=== PATIENT | female | born 1990 | race Caucasian/White ===

== ENCOUNTER 2019-10-30 16:31 | Emergency (ER) | payer OTHER ==
--- NOTE | 2019-10-30 16:37 | ED ---
General Adult HPI - General Stated complaint: Cough, wants covid test Time Seen by Provider: 10/30/19 16:35 - History of Present Illness Initial comments: Patient is a 29-year-old female presenting to emergency Department with a chief complaint of a cough. Patient states she came neck recently. For ago with the number of Covid cases have drastically increased. Patient [place] and potentially has been exposed to a Covid patient. Also reports over the last few days she has developed a nonproductive cough. She denies any shortness of breath or fevers. Denies any loss of taste or smell. Denies any nausea vomiting diarrhea. Patient is a smoker. Denies history of any respiratory conditions. - Related Data Allergies Allergy/AdvReac Type Severity Reaction Status Date / Time cephalexin [From Keflex] Allergy Unknown Verified 10/30/19 16:42 codeine Allergy Unknown Verified 10/30/19 16:42 Penicillins Allergy Unknown Verified 10/30/19 16:42 tramadol Allergy Unknown Verified 10/30/19 16:42 Review of Systems ROS Statement: Those systems with pertinent positive or pertinent negative responses have been documented in the HPI. ROS Other: All systems not noted in ROS Statement are negative. General Exam Limitations: no limitations General appearance: alert, in no apparent distress, obese Head exam: Present: atraumatic, normocephalic, normal inspection Eye exam: Present: normal appearance, PERRL, EOMI Pupils: Present: normal accommodation ENT exam: Present: normal exam, normal oropharynx, mucous membranes moist Neck exam: Present: normal inspection, full ROM Respiratory exam: Present: normal lung sounds bilaterally. Absent: respiratory distress, wheezes Cardiovascular Exam: Present: regular rate, normal rhythm, normal heart sounds Extremities exam: Present: normal inspection, full ROM. Absent: tenderness Back exam: Present: normal inspection, full ROM. Absent: tenderness Neurological exam: Present: alert, oriented X3, normal gait Psychiatric exam: Present: normal affect, normal mood Skin exam: Present: warm, dry, intact, normal color Course Vital Signs 10/30/19 16:37 Temperature 98.3 F Pulse Rate 92 Respiratory 18 Rate Blood Pressure 116/75 O2 Sat by Pulse 97 Oximetry Medical Decision Making - Medical Decision Making Patient is a 29-year-old female presenting to the emergency department with a chief complaint of a cough. Patient is also requesting Covid testing. Physical examination is unremarkable. Patient is not in any respiratory distress. Vitals are stable. X-ray of the chest is unremarkable. Cor with testing pending. Patient will be notified with the results as soon as they become available.I counseled the patient for smoking cessation for greater than 3 minutes. Patient advised to self isolate until the results are given. Return parameters thoroughly discussed the patient was understanding and agreeable. Case discussed with physician. Disposition Clinical Impression: Cough Disposition: HOME SELF-CARE Condition: Stable Additional Instructions: You'll be contacted with the Covid results. Return to emergency department if symptoms worsen. Follow with primary care. Self isolate until you receive Covid testing results. Is patient prescribed a controlled substance at d/c from ED?: No Referrals: Kenneth Vargas MD [Primary Care Provider] - 1-2 days Time of Disposition: 17:32
[2019-10-30 16:41] VITALS: BP 116/75; PULSE 92; RESP 18; TEMP 98.3
--- NOTE | 2019-10-30 17:21 | XR ---
EXAMINATION TYPE: XR chest 2V DATE OF EXAM: 10/30/2019 COMPARISON: NONE HISTORY: Chest pain TECHNIQUE: Frontal and lateral views of the chest are obtained. FINDINGS: There is no focal air space opacity. No evidence for pneumothorax. No pleural effusion. The cardiac silhouette size is within normal limits. The osseous structures are grossly intact. IMPRESSION: 1. No acute cardiopulmonary process.
== END 2019-10-30 18:01 | disposition home or self-care (01) ==
LOC: EC 16:31
DX: R05 Cough (principal); F17.200 Nicotine dependence, unspecified, uncomplicated; Z88.0 Allergy status to penicillin; Z88.1 Allergy status to other antibiotic agents; Z88.5 Allergy status to narcotic agent; Z88.6 Allergy status to analgesic agent; Z20.828 Contact with and (suspected) exposure to other viral communicable diseases
CPT/HCPCS: 99283; 71046; U0003

== ENCOUNTER 2020-10-02 19:01 | Emergency (ER) | payer OTHER ==
[2020-10-02 20:57] VITALS: BP 105/48; PULSE 73; RESP 20; TEMP 98.2
--- NOTE | 2020-10-02 21:25 | XR ---
EXAMINATION TYPE: XR knee complete RT DATE OF EXAM: 10/02/2020 COMPARISON: NONE HISTORY: Knee pain TECHNIQUE: 3 views FINDINGS: There is previous knee reconstructive surgery. I see no fracture nor dislocation. There is no sign of joint effusion. Joint spaces are fairly normal. IMPRESSION: Previous surgery. No fracture. No significant arthritic disease.
[2020-10-02] MEDS ORDERED: KETOROLAC 15 MG/ML 1 ML VIAL IM STA (21:39)
--- NOTE | 2020-10-03 02:36 | ED ---
Lower Extremity Injury HPI - General Chief Complaint: Extremity Injury, Lower Stated Complaint: rt knee pain Time Seen by Provider: 10/02/20 21:11 Source: patient Mode of arrival: ambulatory Limitations: no limitations - History of Present Illness Initial Comments: 30-year-old female patient presents to the emergency department today for evaluation of right knee pain and swelling. Patient states she's had problems with the knee for quite some time. Has had previous surgery for ACL reconstruction. States she is scheduled to undergo surgery again within the next couple of weeks. Patient states she came in today because the pain seemed worse. Unable to get the swelling to go down. His any numbness or tingling to the right foot. Denies any new injury. Denies fever or chills. Denies any redness over the knee. - Related Data Allergies Allergy/AdvReac Type Severity Reaction Status Date / Time cephalexin [From Keflex] Allergy Unknown Verified 10/02/20 20:57 codeine Allergy Unknown Verified 10/02/20 20:57 Penicillins Allergy Unknown Verified 10/02/20 20:57 tramadol Allergy Unknown Verified 10/02/20 20:57 Review of Systems ROS Statement: Those systems with pertinent positive or pertinent negative responses have been documented in the HPI. ROS Other: All systems not noted in ROS Statement are negative. Past Medical History Past Medical History: No Reported History History of Any Multi-Drug Resistant Organisms: None Reported Past Surgical History: Cholecystectomy, Orthopedic Surgery Additional Past Surgical History / Comment(s): rt knee Past Psychological History: Bipolar, Depression Past Alcohol Use History: Occasional Past Drug Use History: None Reported General Exam Limitations: no limitations General appearance: alert, in no apparent distress Respiratory exam: Present: normal lung sounds bilaterally. Absent: respiratory distress, wheezes, rales, rhonchi, stridor Cardiovascular Exam: Present: regular rate, normal rhythm, normal heart sounds. Absent: systolic murmur, diastolic murmur, rubs, gallop, clicks Extremities exam: Present: normal inspection, full ROM, normal capillary refill, other (Skin to the right leg is pink, warm, dry. Cap refill less than 3 seconds. Pedal and posttibial pulses 2+. Patient has full flexion and full extension of the knee. No laxity or pain with valgus or varus maneuvers. No significant swelling.). Absent: tenderness, pedal edema, joint swelling, calf tenderness Neurological exam: Present: alert, oriented X3, CN II-XII intact Psychiatric exam: Present: normal affect, normal mood Skin exam: Present: warm, dry, intact, normal color. Absent: rash Course Vital Signs 10/02/20 20:54 Temperature 98.2 F Pulse Rate 73 Respiratory 20 Rate Blood Pressure 105/48 O2 Sat by Pulse 99 Oximetry Medical Decision Making - Medical Decision Making 30-year-old female patient presents to the emergency department today for evalua tion of right knee pain. Physical examination was unremarkable. She had full range of motion. Neurovascular status was intact. She does have an appointment coming up with orthopedics in a surgery scheduled. She is instructed to follow- up with her doctor for pain medication due to multiple ALLERGIES. Return parameters were discussed in detail. She verbalizes understanding and agrees with this plan. My attending is Dr. Mendoza. - Radiology Data Radiology results: report reviewed, image reviewed 3 views of the right knee showed previous surgery no fracture. No significant arthritic disease. Disposition Clinical Impression: Chronic pain of right knee Disposition: HOME SELF-CARE Condition: Good Instructions (If sedation given, give patient instructions): Knee Pain (ED) Is patient prescribed a controlled substance at d/c from ED?: No Referrals: Kenneth Vargas MD [Primary Care Provider] - 1-2 days Time of Disposition: 21:39
== END 2020-10-02 21:50 | disposition home or self-care (01) ==
LOC: EC 19:01
DX: G89.29 Other chronic pain (principal); M25.561 Pain in right knee; Z88.0 Allergy status to penicillin; Z88.1 Allergy status to other antibiotic agents; Z88.5 Allergy status to narcotic agent; Z88.8 Allergy status to other drugs, medicaments and biological substances
CPT/HCPCS: 73562; 99283; 96372; J1885

== ENCOUNTER 2020-11-29 | Emergency (ER) | payer OTHER ==
--- NOTE | 2020-11-29 01:25 | ED ---
General Adult HPI - General Chief complaint: Shortness of Breath Stated complaint: SOB Time Seen by Provider: 11/29/20 00:13 Source: patient, RN notes reviewed Mode of arrival: ambulatory Limitations: no limitations - History of Present Illness Initial comments: Patient is a 30-year-old female that presents to the emergency department for a one-day history of upper respiratory tract symptoms. She notes that she is in a cough with phlegm production no mucus. She denied any fevers aches or pains. She was otherwise a well-appearing 30-year-old female in no apparent distress while sitting up in bed during the exam interview. She denied any chest pain headache nausea vomiting diarrhea constipation fever fatigue chills. - Related Data Allergies Allergy/AdvReac Type Severity Reaction Status Date / Time cephalexin [From Keflex] Allergy Unknown Verified 11/29/20 00:11 codeine Allergy Unknown Verified 11/29/20 00:11 Penicillins Allergy Unknown Verified 11/29/20 00:11 tramadol Allergy Unknown Verified 11/29/20 00:11 Review of Systems ROS Statement: Those systems with pertinent positive or pertinent negative responses have been documented in the HPI. ROS Other: All systems not noted in ROS Statement are negative. Past Medical History Past Medical History: No Reported History History of Any Multi-Drug Resistant Organisms: None Reported Past Surgical History: Cholecystectomy, Orthopedic Surgery Additional Past Surgical History / Comment(s): rt knee Past Psychological History: Bipolar, Depression Smoking Status: Current every day smoker, Vaper Past Alcohol Use History: Occasional Past Drug Use History: None Reported General Exam Limitations: no limitations General appearance: alert, in no apparent distress, obese Head exam: Present: atraumatic, normocephalic, normal inspection Eye exam: Present: normal appearance, PERRL, EOMI. Absent: scleral icterus, conjunctival injection, periorbital swelling Neck exam: Present: normal inspection Respiratory exam: Present: normal lung sounds bilaterally. Absent: respiratory distress, wheezes, rales, rhonchi, stridor Cardiovascular Exam: Present: regular rate, normal rhythm, normal heart sounds. Absent: systolic murmur, diastolic murmur, rubs, gallop, clicks Extremities exam: Present: normal inspection, full ROM, normal capillary refill. Absent: tenderness, pedal edema, joint swelling, calf tenderness Neurological exam: Present: alert, oriented X3 Psychiatric exam: Present: normal affect, normal mood Skin exam: Present: warm, dry, intact, normal color. Absent: rash Course Vital Signs 11/29/20 11/29/20 00:07 00:11 Temperature 98.4 F Pulse Rate 88 Respiratory 18 24 Rate Blood Pressure 135/75 O2 Sat by Pulse 96 Oximetry Medical Decision Making - Medical Decision Making 30-year-old female complaining of upper respiratory tract symptoms times one. Chest x-ray, Covid test ordered. Covid test negative. Chest x-ray negative for any acute process. Case discussed with Dr. Mendoza, patient can discharge home in stable condition with follow-up primary care. - Lab Data Lab Results 11/29/20 Range/Units 00:49 Coronavirus (PCR) Not Detected (Not Detectd) - Radiology Data Radiology results: report reviewed, image reviewed Chest x-ray: Normal chest. No change. Disposition Clinical Impression: Upper respiratory tract infection Disposition: HOME SELF-CARE Condition: Stable Instructions (If sedation given, give patient instructions): Upper Respiratory Infection (ED) Additional Instructions: Please return to the Emergency Department if symptoms worsen or any other concerns. Follow-up with primary 1-2 days. Take Tylenol and Motrin as needed for any fevers and/or aches and pains. Can take [id number] decongestions to help with chest congestion. Get plenty rest, increase oral fluids. Is patient prescribed a controlled substance at d/c from ED?: No Referrals: Kenneth Vargas MD [Primary Care Provider] - 1-2 days Time of Disposition: 01:46
--- NOTE | 2020-11-29 01:43 | XR ---
EXAMINATION TYPE: XR chest 2V DATE OF EXAM: 11/29/2020 COMPARISON: October 30, 2019 HISTORY: Cough TECHNIQUE: 2 views FINDINGS: Heart and mediastinum are normal. Lungs are clear. Diaphragm is normal. Bony thorax appears normal. IMPRESSION: Normal chest. No change.
[2020-11-29 01:56] VITALS: BP 132/82; PULSE 87; RESP 18; TEMP 97.8
== END 2020-11-29 01:56 | disposition home or self-care (01) ==
LOC: EC
DX: J06.9 Acute upper respiratory infection, unspecified (principal); E66.9 Obesity, unspecified; F17.290 Nicotine dependence, other tobacco product, uncomplicated; Z68.42 Body mass index [BMI] 45.0-49.9, adult; Z88.0 Allergy status to penicillin; Z88.1 Allergy status to other antibiotic agents; Z88.5 Allergy status to narcotic agent; Z88.8 Allergy status to other drugs, medicaments and biological substances
CPT/HCPCS: 71046; 87635; 99283